=== PATIENT | female | born 1950 | race Caucasian/White ===

== ENCOUNTER 2018-06-20 23:13 | Emergency (ER) | payer BC ==
[2018-06-20] MEDS ORDERED: ACETAMINOPHEN 325 MG TAB PO ONE (23:29)
--- NOTE | 2018-06-20 23:36 | Emergency Department Record ---
History of Present Illness - General Chief complaint: Pain Stated complaint: FACIAL PAIN Time Seen by Provider: 06/20/18 23:22 Source: Patient Mode of Arrival: Ambulatory Limitations: No limitations - History of Present Illness Initial comments: The patient is here due to developing pain around her R eye today which started about 4pm. The pain seems to be worse near the R Ignacio and has been an aching pain. She has no hx of similar issues and did not take anything for it. Presently the pain is much improved. About an hour ago she developed blurred vision in her L eye which lasted about 15 minutes and then resolved. She describes it as the L lateral half of her vision was blurry. At this time her vision is normal. She denies any nausea, neck pain, trauma, arm or leg numbness , weakness, balance issues or confusion. Due to the L eye blurriness she felt she needed she needed to be evaluated. MD Complaint: Other Onset/Timin -: Hour(s) Location: Right, Other Severity scale (1-10): 8 Quality: Aching Consistency: Constant, Other (Now improving.) Improves with: Nothing Worsens with: Nothing - Related Data Home Medications Medication Instructions Recorded Confirmed Last Taken Aspirin [Aspirin EC] 81 mg PO DAILY 06/20/18 06/20/18 Unknown Ca/D3/Mag Ox/Zinc/Human Resource Professional/Evelio/Bor 1 each PO DAILY 06/20/18 06/20/18 Unknown [Calcium 600+D3 Plus Caplet] Ferrous Sulfate [Iron] 325 mg PO DAILY 06/20/18 06/20/18 Unknown Multivitamin [Multi-Vitamin Daily] 1 each PO DAILY 06/20/18 06/20/18 Unknown Allergies Allergy/AdvReac Type Severity Reaction Status Date / Time No Known Drug Allergies Allergy Verified 02/23/16 12:42 Travel Screening - Travel/Exposure Within Last 30 Days Have you traveled within the last 30 days?: No - Travel Symptoms Symptom Screening: None Review of Systems Constitutional: Denies: Chills, Fever Eyes: Denies: Eye discharge ENT: Denies: Congestion Respiratory: Denies: Cough, Dyspnea Past Medical History - SOCIAL HISTORY Smoking Status: Never smoker Alcohol Use: None Drug Use: None - RESPIRATORY Hx Respiratory Disorders: Yes Hx Sleep Apnea: Yes Hx of CPAP: No (doesn't wear it "uncomfortable") - CARDIOVASCULAR Hx Cardio Disorders: Yes 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) Hx Edema: No (on HCTZ) Hx Palpitations: Yes (1980s-anxiety attack) - NEURO Hx Neuro Disorders: No - GI Hx GI Disorders: Yes Hx of Polyps: Yes - Hx Genitourinary Disorders: No - ENDOCRINE Hx Endocrine Disorders: No - MUSCULOSKELETAL Hx Musculoskeletal Disorders: Yes Hx Arthritis: Yes (left knee) - PSYCH Hx Psych Problems: Yes Hx Anxiety: Yes (in past only) - HEMATOLOGY/ONCOLOGY Hx Hematology/Oncology Disorders: No Family Medical History Any Significant Family History?: Yes Hx Alcohol Use: Father, Brother/Sister Hx Cancer: Brother/Sister Hx Diabetes: Grandparents Hx Heart Disease: Grandparents Hx Kidney Disease: Brother/Sister Hx Liver Disease: Brother/Sister Physical Exam - General General Appearance: Alert, Oriented x3, Cooperative, No acute distress - Head Head exam: Atraumatic, Normocephalic, Normal inspection - Eye Eye exam: Normal appearance, PERRL, EOMI. negative: Conjunctival injection - ENT ENT exam: Normal exam, Mucous membranes moist, Normal external ear exam, Normal orophraynx, TM's normal bilaterally Throat exam: Normal inspection. negative: Tonsillar erythema, Tonsillar exudate - Neck Neck exam: Normal inspection, Full ROM, Other (Neg carotid bruits.). negative: Lymphadenopathy, Meningismus, Tenderness - Respiratory Respiratory exam: Normal lung sounds bilaterally. negative: Respiratory distress - Cardiovascular Cardiovascular Exam: Regular rate, Normal rhythm, Normal heart sounds. negative : Diastolic murmur, Systolic murmur - GI/Abdominal GI/Abdominal exam: Soft, Normal bowel sounds. negative: Tenderness - Extremities Extremities exam: Normal inspection, Full ROM, Normal capillary refill. negative: Tenderness - Neurological Neurological exam: Alert, CN II-XII intact, Normal gait, Oriented X3, Other ( Neg Drift and Rhomberg exams.). negative: Abnormal gait, Altered, Motor sensory deficit - Psychiatric Psychiatric exam: negative: Anxious - Skin Skin exam: negative: Rash Course Vital Signs 06/20/18 23:16 Temperature 97.9 F Pulse Rate 78 Respiratory 18 Rate Blood Pressure 164/92 Pulse Ox 97 - Reevaluation(s) Reevaluation #1: 06/21/18 00:18 The patient is doing better at this time. She has no visual changes and her R sided facial pain continues to resolve. She denies any nausea, neck pain, or any speech problems or arm or leg numbness or weakness. Reevaluation #2: The patient is doing very well at this time. Her R facial pain is down to a 2/ 10 and now is very mild. She has had no further L eye visual changes. I did discuss the neg lab work with the patient and the fact that the Head CT did not demonstrate any abnormalities. Because of her constellation of symptoms and the remote chance the visual changes could have been a TIA I did recommend hospital admission for further testing in the morning including carotid dopplers and a cardiac echo. The patient is refusing the plan. I explained to her that by NOT staying in the hospital she could go home and have a stroke, become disabled and even . The patient understands the risks of leaving and accepts the risks and understands we cannot be held liable for NOT keeping her here and evaluating her symptoms further. She presently has proper decision making capacity and is to see her PCP JODY for recheck and to return to the ER for any worsening symptoms. 06/21/18 00:47 06/21/18 00:52 Medical Decision Making - Data Complexity MDM Data: Labs Ordered and/or Reviewed, X-Ray Ordered and/or Reviewed - Lab Data Result diagrams: 06/20/18 23:40 06/20/18 23:40 - Radiology Data Radiology results: Report reviewed (Head CT: Neg for any acute abnormalities.) Disposition Disposition: Discharge Clinical Impression: Blurred vision, left eye Disposition: Home, Self-Care Condition: (2) Stable Instructions: Blurred Vision (ED) Additional Instructions: Please continue your regular medicines and please use Tylenol for pain. Please see your family doctor for recheck JODY and to possibly have a brain MRI ordered. Return to the ER for any worsening pain, or any return of the visual changes or any arm, or leg numbness, weakness, balance issues or speech issues. Forms: Patient Portal Access Time of Disposition: 00:51 Quality - Quality Measures Quality Measures: N/A - Blood Pressure Screening View Details: Yes Does Patient Have Any of the Following: Active Dx of HTN Blood Pressure Classification: Hypertensive Reading Systolic Measurement: 164 Diastolic Measurement: 92 Screening for High Blood Pressure: Patient Exclusion, Hx of HTN [[id number]]
[2018-06-20 23:45] LABS: BASO % 0.4 % (0-6); HEMATOCRIT 40.1 % (35.0-47.0); HEMOGLOBIN 13.7 gm/dl (11.6-16.0); LYMPH % 33.8 % (16-45); MEAN CELL VOLUME 91.3 fl (81-97); MEAN CORPUSCULAR HEMOGLOBIN 31.2 pg (27-33); MEAN CORPUSCULAR HGB CONC 34.2 g/dl (32-36); MEAN PLATELET VOLUME 9.6 fl (7.4-10.4); MONO % 7.8 % (0-9); PLATELET COUNT 268 K/uL (130-400); RED BLOOD COUNT 4.39 M/uL (3.80-5.40); RED CELL DISTRIBUTION WIDTH 13.8 % (11.5-14.5); WHITE BLOOD COUNT W/O DIFF 7.2 K/uL (4.2-12.2)
[2018-06-20 23:58] LABS: BLOOD UREA NITROGEN 21 mg/dL (8-23); CREATININE 0.5 mg/dL (0.5-0.9); EST GLOMERULAR FILTRATION RATE > 60 mL/min
[2018-06-20 23:59] LABS: TOTAL PROTEIN 7.9 g/dL (6.6-8.7)
[2018-06-21 00:01] LABS: GLUCOSE,RANDOM 137 mg/dL (74-109)
[2018-06-21 00:03] LABS: ALB/GLOB RATIO 1.3 (1.1-1.8); ALBUMIN 4.5 g/dL (4.0-5.0); ALKALINE PHOSPHATASE 70 U/L (45-87); ALT/SGPT 22 U/L (<33); AST/SGOT 20 U/L (10.0-35.0)
[2018-06-21 00:04] LABS: C-REACTIVE PROTEIN 0.31 mg/dL (<0.5)
[2018-06-21] MEDS ORDERED: POTASSIUM CHLORIDE 20 MEQ TABLET PO ONE (00:09)
--- NOTE | 2018-06-22 11:37 | CT SCAN REPORT ---
DATE: 06/20/2018. EXAM: NONCONTRAST CT OF THE BRAIN. HISTORY: Right temporal headache for eight hours. TECHNIQUE: Noncontrast CT of the brain. COMPARISON: CT of the brain dated 03/12/2011. FINDINGS: No midline shift, mass effect, or abnormal intra- or extraaxial fluid collection. No cerebral edema, focal mass, or intracranial hemorrhage detected. Ventricle sizes within normal limits for patient age. Incidental note of probable senescent basal ganglia calcifications bilaterally. No displaced calvarial fracture detected. The visualized paranasal sinuses and mastoid air cells are clear. IMPRESSION: NO ACUTE INTRACRANIAL FINDINGS. PRELIMINARY REPORT PROVIDED BY THE [facility]. JOB NUMBER: [id number] MTDD
== END 2018-06-21 00:57 | disposition home or self-care (01) ==
LOC: ER 23:13
DX: H53.8 Other visual disturbances (principal); H57.11 Ocular pain, right eye; R51 Headache; I10 Essential (primary) hypertension
CPT/HCPCS: 70450; 80053; 85025; 85651; 86140; 99283; 99284